=== PATIENT | male | born 1970 | race African-American/Black ===

== ENCOUNTER 2021-05-09 15:54 | Emergency (ER) | payer BC ==
[~2021-05-09] VITALS: Ht 175.3 cm; Wt 116.7 kg
[~2021-05-09 15:54] MED LIST: AMLO-54 PO; CRESTOR40 MG PO; EMPA25TA3 PO; HYDR-2145 PO
--- NOTE | 2021-05-09 16:11 | PHYS DOC ---
General Adult EDM: Chief Complaint: KNEE SWELLING HPI: HPI: Patient is a 50 year old male who presents the ED today complaining of a sharp 8 out of 10 right knee pain, symptoms began on Tuesday this week. Patient denies any trauma. Denies any fever or warmth to the knee. He states the knee feels better today and he is able to walk and use the knee. (DEANGELO WALLIS APRN) Review of Systems: Review of Systems: Constitutional: Denies fever or chills. [] : Denies dysuria. [] Musculoskeletal: Reports right knee pain Integument: Denies rash. [] Neurologic: Denies headache, focal weakness or sensory changes. [] Psychiatric: Denies depression or anxiety. [] (DEANGELO WALLIS APRN) Heart Score: C/O Chest Pain: N/A Risk Factors: Risk Factors: DM, Current or recent (<one month) smoker, HTN, HLP, family history of CAD, obesity. Risk Scores: Score 0 - 3: 2.5% MACE over next 6 weeks - Discharge Home Score 4 - 6: 20.3% MACE over next 6 weeks - Admit for Clinical Observation Score 7 - 10: 72.7% MACE over next 6 weeks - Early Invasive Strategies (DEANGELO WALLIS APRN) Allergies: Allergies: Allergies Coded Allergies Type Severity Reaction Last Updated Verified No Known Drug Allergies 08/04/20 No (DEANGELO WALLIS APRN) Physical Exam: PE: Constitutional: Well developed, well nourished, no acute distress, non-toxic appearance. [] Skin: Warm, dry, no erythema, no rash. [] Back: No tenderness, no CVA tenderness. [] Extremities: Right knee with trace amount of diffuse swelling, no tenderness on exam, full range of motion to the right knee, negative Laurie sign, negative James sign, negative anterior posterior drawer sign. +2 right pedal pulse. Cap refill less than 2 seconds to right lower extremity. Neurologic: Alert and oriented X 3, normal motor function, normal sensory function, no focal deficits noted. [] Psychologic: Affect normal, judgement normal, mood normal. [] (DEANGELO WALLIS APRN) EKG: EKG: [] (DEANGELO WALLIS APRN) Radiology/Procedures: Radiology/Procedures: []PROCEDURE: KNEE RIGHT 4V 4 view right knee radiographs 05/09/2021 CLINICAL HISTORY: Right knee pain and swelling. AP, oblique and lateral along with sunrise digital radiographs of the right knee were obtained. Lateral and sunrise radiographs are suboptimally positioned particularly limiting radiographic evaluation of the patella. No fracture or dislocation of the right knee is definitely seen. No significant degenerative changes are noted. IMPRESSION: No fracture or dislocation of the right knee is definitely seen. Electronically signed by: Marcel Granado MD (05/09/2021 4:58 PM) [id number] DICTATED and SIGNED BY: MARCEL GRANADO MD DATE: 05/09/21 [id number] (DEANGELO WALLIS APRN) Course & Med Decision Making: Course & Med Decision Making Pertinent Labs and Imaging studies reviewed. (See chart for details) This is a 50-year-old male patient presenting to the ED today with right knee pain and swelling that began on Tuesday this week. Patient reports the pain is better today. Right knee x-rays interpreted by radiologist are negative for any acute findings. Xavier bandage applied to the right knee by the network operations center technician, neurovascular exam done by me is normal. Ice elevation encouraged. Provided patient orthopedic doctor for follow-up next week. BP was 187/111 hx of high blood pressure provided PCP for follow up (DEANGELO WALLIS APRN) Course & Med Decision Making I have reviewed the PA/[employer] ECONOMIST's note and plan of care. I was available for consultation as needed during the patient's visit in the emergency department. I agree with the clinical impression, plan, and disposition. In addition: The ERIK and I discussed this case. ERIK specifically noted that there was no redness, warmth, swelling, or fevers and was able to actively range his knee. No effusion noted on x-ray. Considered low risk for septic arthritis. (GEOVANNI THOMAS MD) Dragon Disclaimer: Dragon Disclaimer: This electronic medical record was generated, in whole or in part, using a voice recognition dictation system. (DEANGELO WALLIS APRN) Departure Departure Impression: Primary Impression: Right knee pain Qualified Codes: M25.561 - Pain in right knee Additional Impression: Elevated blood pressure reading Disposition: HOME / SELF CARE / HOMELESS Condition: STABLE Referrals: Danile GAFFNEY MD (PCP) ERIKA WOOD MD follow up in one week Patient Instructions: Hypertension, Knee Pain, Ksrs-ys-Tool Additional Instructions: You were seen for right knee pain, your right knee x-rays are negative for any acute findings. Wear the Xavier bandage provided as tolerated and needed. Try to ice and elevate the affected knee. Please follow-up with orthopedic doctor provided in the next 7 days. Your blood pressure is also running high. Establish care with a primary care doctor and follow-up for blood pressure management Scripts Methylprednisolone (MEDROL) 4 Mg Tab.ds.pk 1 PKG PO UD, #1 PKG Prov: DEANGELO WALLIS APRN 05/09/21 Meloxicam (MOBIC) 7.5 Mg Tablet 1 TAB PO DAILY, #12 TAB 1 Refill Prov: DEANGELO WALLIS APRN 05/09/21 DEANGELO WALLIS APRN May 09, 2021 16:11 GEOVANNI THOMAS MD May 10, 2021 16:18
--- NOTE | 2021-05-09 17:00 | RAD ---
4 view right knee radiographs 05/09/2021 CLINICAL HISTORY: Right knee pain and swelling. AP, oblique and lateral along with sunrise digital radiographs of the right knee were obtained. Later al and sunrise radiographs are suboptimally positioned particularly limiting radiographic evaluation of the patella. No fracture or dislocation of the right knee is definitely seen. No significant degen erative changes are noted. IMPRESSION: No fracture or dislocation of the right knee is definitely seen. Electronically signed by: Marcel Granado MD (05/09/2021 4:58 PM) [id number]
[2021-05-09 17:14] VITALS: BP 185/118
[2021-05-09] MEDS ORDERED: METH4TAB2 PO (17:15)
[2021-05-09] MEDS ORDERED: MELO7.5T5 PO (17:15)
== END 2021-05-09 17:21 | disposition home or self-care (01) ==
LOC: ER 15:54
DX: M25.561 Pain in right knee (principal); R03.0 Elevated blood-pressure reading, without diagnosis of hypertension
CPT/HCPCS: 73564; 99283